=== PATIENT | male | born 1930 ===

== ENCOUNTER 2018-05-15 10:52 | Observation (INO) ==
[2018-05-15] MEDS ORDERED: Sodium Chloride 0.9% 1,000 ML PRIMARY IV ONE (11:18)
[2018-05-15 11:46] LABS: BASOPHILS # (AUTO) 0.06 10*3/UL; BASOPHILS % (AUTO) 0.5 % (0-1); EOSINOPHILS # (AUTO) 0.41 10*3/UL; EOSINOPHILS % (AUTO) 3.6 % (0-8); Hematocrit [HCT] 46.6 % (42.0-52.0); LYMPHOCYTES # (AUTO) 2.07 10*3/uL; MEAN CORPUSCULAR HEMOGLOBIN 28.9 PG (27-31); MEAN CORPUSCULAR HGB CONC 32.2 g/dL (33-37); MEAN CORPUSCULAR VOLUME 89.8 FL (80-90); MEAN PLATELET VOLUME 10.7 FL (7.4-12.2); MONOCYTES # (AUTO) 1.02 10*3/UL (0.3-0.8); MONOCYTES % (AUTO) 9.1 % (5-15); NEUTROPHILS # (AUTO) 7.64 10*3/UL; NEUTROPHILS % (AUTO) 67.8 % (50-80); RED BLOOD COUNT 5.19 10^6/uL (4.70-6.10)
[2018-05-15 11:51] LABS: PLATELET MORPHOLOGY COMMENT NORMAL MORPHOLOGY (NORM); RBC MORPHOLOGY COMMENT NORMAL MORPHOLOGY (NORM); WBC MORPHOLOGY COMMENT NORMAL MORPHOLOGY (NORM)
[2018-05-15 11:57] LABS: BLOOD UREA NITROGEN 30 mg/dL (7-22); BUN/CREATININE RATIO 21.42 (6-20); SERUM ALBUMIN 4.3 g/dL (3.5-4.8)
[2018-05-15] MEDS ORDERED: MORPHINE SULFATE 2 MG/1 ML IVP ONE (12:58)
[2018-05-15] MEDS ORDERED: LIDOCAINE HCL 2 % 10 ML JELLY URO-JECT TOPICAL PRN (13:00)
[2018-05-15] MEDS ORDERED: MORPHINE SULFATE 2 MG/1 ML ONE (13:04)
[2018-05-15] MEDS ORDERED: LORazepam 2 MG/1 ML VIAL IVP ONE (13:41)
[2018-05-15] MEDS ORDERED: LORazepam 2 MG/1 ML VIAL ONE (13:49)
--- NOTE | 2018-05-15 14:01 | DI ---
XR HIP COMPLETE MIN 2VW U/L,05/15/2018 11:19 AM: Clinical History: Left hip pain Previous Exam: None at this facility. Findings: 3 views of the left femur obtained, and demonstrate an intramedullary iraj. There is fragmentation of the greater trochanter. There is also callus formation of the mid left femoral shaft. Visualized portions of the knee are unremarkable. There is no femoral neck fracture identified. Impression: Fragmentation of the greater trochanteric appears to be a chronic finding. Cannot completely rule out the possibility of an acute fracture. If there is concern, consider cross-sectional imaging such as CT.
--- NOTE | 2018-05-15 14:48 | DI ---
CT Lower Extremity WO Contrast,05/15/2018 12:57 PM: Clinical History: Left hip pain Previous Exam: None at this facility. Findings: Multiple helically acquired CT images are obtained through the left hip without contrast, and demonst rate a slightly displaced inferior pubic ramus fracture. There is also a slightly displaced superior pubic ramus fracture which appears acute. There is no associated callus formation. The left hip and left femoral shaft demonstrate an old healed fracture and some fragmentation of the greater trochanter. The surrounding soft tissues are unremarkable. A few peripheral vascular calcifications are seen. Impression: Slightly displaced superior and inferior left pubic rami fractures.
--- NOTE | 2018-05-15 15:03 | PDOC ---
HPI - History of Present Illness History of Present Illness: This very nice 87-year-old gentleman with history of dementia sustained a fall this morning was brought to the ER for further evaluation and treatment on CT scan that was found to have a non-displaced left pubic rami fracture and will be coming in for pain control and physical therapy will continue same medication for his other medical issues Past Medical History Tobacco Use: Never Smoker In the Past 12 Months, Have Used or Abuse Any of the Following Substance: None Medication / Allergies Home Medications: Home Medications 3 Medication Instructions Recorded Confirmed Type aspirin 81 mg tablet,delayed PO 08/20/17 02/07/18 History release docusate sodium 100 mg tablet 100 mg PO QDAY 08/20/17 02/07/18 History atorvastatin 10 mg tablet 10 mg PO QDAY #90 tab 01/16/18 02/07/18 Rx insulin glargine (U-100) 100 60 unit SUBCUT QDAY #3 ml 01/16/18 02/07/18 Rx unit/mL (3 mL) subcutaneous pen metoprolol succinate ER 25 mg 25 mg PO QDAY #90 tab 01/16/18 02/07/18 Rx tablet,extended release 24 hr pioglitazone 15 mg tablet 15 mg PO QDAY #90 tab 01/16/18 02/07/18 Rx sertraline 50 mg tablet 75 mg PO QDAY #135 tab 01/16/18 02/07/18 Rx tamsulosin 0.4 mg capsule 0.4 mg PO QDAY #90 cap 01/16/18 02/07/18 Rx lancets See Dose Instructions .ROUTE 01/29/18 02/07/18 Rx .MEDSUPPLY #100 ea pen needle, diabetic 31 gauge x See Dose Instructions .ROUTE 01/29/18 02/07/18 Rx 11/07" .MEDSUPPLY #90 ea gabapentin 300 mg capsule 300 mg PO QHS #90 cap 03/05/18 03/05/18 Rx donepezil 5 mg tablet 5 mg PO QDAY #90 tab 03/12/18 03/12/18 Rx blood sugar diagnostic strips See Dose Instructions .ROUTE 04/02/18 Rx .MEDSUPPLY #50 ea methylphenidate 10 mg tablet 10 mg PO QDAY #30 tab 04/19/18 Rx Allergies/Adverse Reactions: Allergies 3 Allergy/AdvReac Type Severity Reaction Status Date / Time No Known Allergies Allergy Verified 05/15/18 11:03 Review of Systems - Review of Systems All Systems: Reviewed & No Additional Complaints Except as Stated - Respiratory Respiratory: DENIES: Negative System Review, Cough, Sputum, Dyspnea At Rest, Dyspnea with Exertion, Pleuritic Pain, Hemoptysis, Wheezing, Other, See HPI - Cardiovascular Cardiovascular: DENIES: Negative System Review, Chest Pain, Edema, Syncope, Palpitations, Orthopnea, Paroxysmal Nocturnal Dyspnea, Other, See HPI - Gastrointestinal Gastrointestinal / Abdominal: DENIES: Negative System Review, Nausea, Vomiting, Diarrhea, Constipation, Abdominal Pain, Bloody Stool, Poor Appetite, Heartburn, Regurgitation, Bloating, Lactose Intolerance, Melena, Bright Red Blood per Rectum, Other, See HPI Exam - Vitals Vital Signs: Vital Signs Temperature 96.1 F Temperature Source Temporal Artery Scan Pulse Rate [Telemetry] 67 Respiratory Rate 18 Blood Pressure [Left Arm] 144/130 Pulse Ox 100 Oxygen Flow Rate 2 Oxygen Delivery Method Room Air Height 6 ft Weight 260 lb - General General Appearance: No Acute Distress, Cooperative - Head Head Exam: Normal Inspection, Normocephalic, Atraumatic - Eye Eye Exam: POSITIVE: Normal Appearance, PERRL, EOMI, No Scleral Icterus - Neck Neck Exam: Normal Inspection, Full ROM, No Tenderness, No Lymphadenopathy, No Thyromegaly, JVP is not Raised - Respiratory Respiratory Exam: POSITIVE: Clear to Auscultation - Bilaterally, Breathing Non Labored, Normal To Percussion, Normal to Percussion and Palpation - Cardiovascular Cardiovascular Exam: POSITIVE: RRR, No Murmur, No Clicks, No Gallops, No Rubs, PMI Non-Displaced - GI/Abdominal GI/Abdominal Exam: POSITIVE: Normal Bowel Sounds, Non Tender, Non Distended, Soft, No Masses, No Hepatomegaly, No Splenomegaly, No Organomegaly - Extremities Extremities Exam: POSITIVE: No Clubbing Present, No Edema Present, No Cyanosis Present - Neurological Neurological Exam: POSITIVE: Alert, No Facial Droop, Speech Intact / Clear, Moves All Extremities Equally Results - Labs CBC and BMP: 05/15/18 11:42 05/15/18 11:42 Assessment and Plan - Patient Problems (1) Fracture of left inferior pubic ramus Current Visit: Yes Status: Acute Comment: We'll admit patient for pain control orthopedic consult was initiated PT and OT was consult did Code(s): S32.592A - Other specified fracture of left pubis, initial encounter for closed fracture (2) Dementia Current Visit: No Status: Chronic Comment: Continue same medication Code(s): F03.90 - Unspecified dementia without behavioral disturbance Qualifiers: (3) Depression Current Visit: No Status: Chronic Comment: Continue same medication Code(s): F32.9 - Major depressive disorder, single episode, unspecified Qualifiers: (4) Diabetes 1.5, managed as type 2 Current Visit: No Status: Chronic Comment: Continue same medication Code(s): E10.9 - Type 1 diabetes mellitus without complications (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
[2018-05-15] MEDS ORDERED: DOCUSATE 100 MG CAPSULE PO PRN (15:32)
[2018-05-15] MEDS ORDERED: ONDANSETRON 4 MG/2 ML VIAL IVP PRN (15:32)
[2018-05-15] MEDS ORDERED: HYDROmorphone 2 MG/1 ML IVP PRN (15:32)
[2018-05-15] MEDS ORDERED: CALCIUM CARBONATE 500 MG (TUMS) CHEWABLE TABLET PO PRN (15:32)
[2018-05-15] MEDS ORDERED: LIDOCAINE W/ SODIUM BICARB 0.5 ML SYR SUBD PRN (15:32)
--- NOTE | 2018-05-15 16:35 | CONSULT ---
Consult Note - Consult Consult Date: 05/15/18 Reason for Consult: Orthopedic Consult Requesting Physician: dr Christianson Primary Care Provider: Carmelita Flores MD - History of Present Illness History of Present Illness: Patient is an 87-year-old man who was in someone's bathroom other than his own was sitting on a raised toilet seat and fell off landing on his hip and buttock region with medial pain discomfort was brought to the hospital via ambulance because he could not ambulate and increasing pain and discomfort patient had a complex history in that he has previous femur fracture treated with an IM nail about 15 years ago in [facility]. Patient is with some degree of dementia but usually ambulates with a cane. He is not complaining of any hip pain prior to this fall. His normal toilet seat does not have a raised toilet seat Past Medical History Tobacco Use: Never Smoker In the Past 12 Months, Have Used or Abuse Any of the Following Substance: None Medication / Allergies Home Medications: Home Medications 3 Medication Instructions Recorded Confirmed Type aspirin 81 mg tablet,delayed PO 08/20/17 02/07/18 History release docusate sodium 100 mg tablet 100 mg PO QDAY 08/20/17 02/07/18 History atorvastatin 10 mg tablet 10 mg PO QDAY #90 tab 01/16/18 02/07/18 Rx insulin glargine (U-100) 100 60 unit SUBCUT QDAY #3 ml 01/16/18 02/07/18 Rx unit/mL (3 mL) subcutaneous pen metoprolol succinate ER 25 mg 25 mg PO QDAY #90 tab 01/16/18 02/07/18 Rx tablet,extended release 24 hr pioglitazone 15 mg tablet 15 mg PO QDAY #90 tab 01/16/18 02/07/18 Rx sertraline 50 mg tablet 75 mg PO QDAY #135 tab 01/16/18 02/07/18 Rx tamsulosin 0.4 mg capsule 0.4 mg PO QDAY #90 cap 01/16/18 02/07/18 Rx lancets See Dose Instructions .ROUTE 01/29/18 02/07/18 Rx .MEDSUPPLY #100 ea pen needle, diabetic 31 gauge x See Dose Instructions .ROUTE 01/29/18 02/07/18 Rx 11/07" .MEDSUPPLY #90 ea gabapentin 300 mg capsule 300 mg PO QHS #90 cap 03/05/18 03/05/18 Rx donepezil 5 mg tablet 5 mg PO QDAY #90 tab 03/12/18 03/12/18 Rx blood sugar diagnostic strips See Dose Instructions .ROUTE 04/02/18 Rx .MEDSUPPLY #50 ea methylphenidate 10 mg tablet 10 mg PO QDAY #30 tab 04/19/18 Rx Allergies/Adverse Reactions: Allergies 3 Allergy/AdvReac Type Severity Reaction Status Date / Time No Known Allergies Allergy Verified 05/15/18 11:03 Exam - - Exam: Examination shows that the patient generally is a little sleepy at the current time but moves the upper extremities reasonably well with no pain or discomfort no pain in the neck lower back or mid back region. No pain along the rib cage. Patient with no significant pain with squeezing of the pelvis but does have pain over the anterior symphysis and rami area. No significant pain or ecchymosis over the trochanteric region laterally. Old incisions. No significant edema or swelling in the lower extremities. Good motion of the foot ankle and toes does have pain with movement of the hip or knee on the left. Radiographs of the left hip show that the patient has femoral nail in place with a lag screw that is rather high in the femoral head and neck region but does not appear to have any acute changes. Patient with a distal interlock well -healed femur fracture distally. Patient also with the minimally displaced superior inferior ramus fracture on the left on x-ray CT of the pelvis showed a minimally displaced superior inferior ramus fracture. I don't see any posterior sacral her iliac fractures. - Vitals Vital Signs: Vital Signs Temperature 96.1 F Temperature Source Temporal Artery Scan Pulse Rate [Telemetry] 67 Respiratory Rate 18 Blood Pressure [Left Arm] 144/130 Pulse Ox 97 Oxygen Flow Rate 3 Oxygen Delivery Method Nasal Cannula Height 5 ft 9 in Weight 102.965 kg Results - Labs CBC and BMP: 05/15/18 11:42 05/15/18 11:42 Assessment and Plan - Assessment / Plan Additional Assessment/Plan Details: Impression: Left superior and inferior ramus fractures mildly displaced Plan: Patient can be partial weightbearing on the left with a walker I probably would try to limit the weightbearing based on his discomfort. I certainly think with his dementia this may be difficulty may need to be more ambulatory with a wheelchair no pivoting or twisting on that left leg. Pain control with oral or IV medication as needed and depending on the patient's ability to participate with therapy may dictate placement issues. Patient desire is to get home as well as it is for his and family - Time/Visit Time Spent With Patient: 15-25 Minutes
[2018-05-15] MEDS: Lactated Ringers 1,000 ML PRIMARY IV SCH (16:36)
--- NOTE | 2018-05-15 16:49 | EKG ---
[address] [address] Measurements Intervals [place] Rate: 66 P: 35 UT: 290 QRS: 4 QRSD: 91 T: 13 QT: 412 QTc: 425 Interpretive Statements SINUS RHYTHM WITH FIRST DEGREE AV BLOCK No previous ECG available for comparison Electronically Signed On 05-16-18 13:35:04 MST by Cristhian Rodas [email or web address]
[2018-05-15] MEDS: DONEPEZIL 5 MG TABLET PO SCH (20:42)
[2018-05-15] MEDS: GABAPENTIN 300 MG CAPSULE PO SCH (20:42)
[2018-05-15] MEDS: ATORVASTATIN 10 MG TABLET PO SCH (20:42)
[2018-05-15] MEDS ORDERED: TAMSULOSIN 0.4 MG CAPSULE PO SCH (21:00)
[2018-05-16] MEDS: Lactated Ringers 1,000 ML PRIMARY IV SCH ×2 (03:23→13:32)
--- NOTE | 2018-05-16 04:27 | PDOC ---
Hip Injury/Pain HPI - General Chief Complaint: Lower Extremity Problem/Injury Stated Complaint: hip pain s/p fall Date Seen by Provider: 05/15/18 Time Seen by Provider: 11:05 Source: POSITIVE: Patient, Spouse, EMS, Other (Daughter) Exam Limitations: POSITIVE: No limitations Nurse's Notes Reviewed & Considered: Yes EMS Report Reviewed & Considered: Verbal - History of Present Illness Initial Comments: The patient is an 87-year-old male who lives at an assisted living center. Patient arrives to the emergency room by ambulance. Patient was sitting on the commode and slipped off the commode onto the floor. found the patient on the floor the bathroom and she could not get the patient up, so she your family member called the ambulance. Patient normally uses a walker. Patient has had repair of a femoral fracture on the left with associated left hip arthroplasty in the past. Patient denies any associated head neck back chest abdomen or upper extremity trauma or discomfort. Have you received a tetanus shot in the past 10 years?: Unknown Location: Left Hip Timing: REPORTS: Abrupt Duration: 1 hour Severity: Moderate Location at Time of Onset: REPORTS: Home Context: REPORTS: Fall Concurrent Injuries: DENIES: Neck, Head, Back, Chest, Abdomen, Extremities, Face , Other Quality: REPORTS: "Pain" (Left hip) Modifying Factors: REPORTS: Movement, Other (Patient states he is unable to bear weight on left leg) Symptoms Prior to Fall: DENIES: Fever, Chills, Diaphoresis, Diaphoresis, Chest Pain, Weakness, Rapid Heart Rate, Nausea, Vomiting, Diarrhea, Dizziness, Light- Headedness, Headache, Seizure, Other Subsequent Symptoms: DENIES: Sensory Loss, Motor Loss, Numbness, Weakness, Bowel / Bladder Problems, Other Similar Symptoms Previously: No Recent Care Received: REPORTS: Denies Any Prior Injuries Related to Current Complaint?: No - Patient Home Medications Home Medications: Home Medications aspirin 81 mg tablet,delayed release PO 08/20/17 docusate sodium 100 mg tablet 100 mg PO QDAY 08/20/17 atorvastatin 10 mg tablet 10 mg PO QDAY #90 tab 01/16/18 insulin glargine (U-100) 100 unit/mL (3 mL) subcutaneous pen 60 unit SUBCUT QDAY #3 ml 01/16/18 metoprolol succinate ER 25 mg tablet,extended release 24 hr 25 mg PO QDAY #90 tab 01/16/18 pioglitazone 15 mg tablet 15 mg PO QDAY #90 tab 01/16/18 sertraline 50 mg tablet 75 mg PO QDAY #135 tab 01/16/18 tamsulosin 0.4 mg capsule 0.4 mg PO QDAY #90 cap 01/16/18 lancets See Dose Instructions .ROUTE .MEDSUPPLY #100 ea 01/29/18 pen needle, diabetic 31 gauge x /16" See Dose Instructions .ROUTE .MEDSUPPLY # 90 ea 01/29/18 gabapentin 300 mg capsule 300 mg PO QHS #90 cap 03/05/18 donepezil 5 mg tablet 5 mg PO QDAY #90 tab 03/12/18 blood sugar diagnostic strips See Dose Instructions .ROUTE .MEDSUPPLY #50 ea 03/12 methylphenidate 10 mg tablet 10 mg PO QDAY #30 tab 04/19/18 - Patient Allergies Allergies/Adverse Reactions: Allergies 3 Allergy/AdvReac Type Severity Reaction Status Date / Time No Known Allergies Allergy Verified 05/15/18 11:03 Past Medical History - heen HEENT History: Denies History Cardiovascular History: Hypertension, Hyperlipidemia Respiratory History: Home Oxygen Use Gastrointestinal History: Denies History Genitourinary History: Denies History Endocrine History: Type 2 Diabetes (oral) Musculoskeletal History: Arthritis Neurological History: Denies History Blood Disorders: Denies History Psychiatric History: Denies History History of Sexually Transmitted Diseases: No Male Reproductive History: Denies History Cancer History: Other (please comment) In Past Year Been Physically Harmed or Verbally Threatened: No History of MDRO: No History of Other Communicable Diseases: No Tobacco Use: Never Smoker In the Past 12 Months, Have Used or Abuse Any Substance: None Previous Surgical History: Yes Type / Date of Surgery: patient has noted scar to the left lateral hip, but does not recall if he has had surgery or not, ulcer surgery Anesthesia Reactions: No Malignant Hyperthermia: No Family History of Malignant Hyperthermia: No Significant Family History: Heart disease, Diabetes Past Medical History Reviewed: Reviewed - No Changes ROS - Limitations ROS Limitations: No Limitations Constitution: REPORTS: Denies Symptoms Cardiovascular: REPORTS: Denies Cardiac Symptoms Respiratory: REPORTS: Denies Resp Symptoms Neurological: REPORTS: Denies Neuro Symptoms Gastrointestinal: REPORTS: Denies GI Symptoms Endocrine: REPORTS: Denies Symptoms Musculoskeletal: REPORTS: Joint Pain (Left hip pain) Genitourinary: REPORTS: Denies Symptoms Eyes: REPORTS: Denies Symptoms ENT: REPORTS: Denies Symptoms Skin: REPORTS: Denies Skin Symptoms Lympathic: REPORTS: Denies Lympathic Symptoms Immunologic: POSITIVE: Denies Symptoms Psychiatric: POSITIVE: Denies Psych Symptoms Hip Injury / Pain Exam - General Appearance General Appearance: POSITIVE: Alert, Cooperative, No Evidence of Trauma, Mild Distress. NEGATIVE: No Acute Distress - Lower Extremity Extremities: POSITIVE: No Pedal Edema, No Obvious Injury to Knee, No Deformity to Knee, Normal Tendon Exam, Hip Pain on Leg Movement. NEGATIVE: Normal ROM ( Patient unable to raise left foot off the gurney due to left hip pain), Shortening of Leg, External Rotation of Leg, Hip/Knee Tenderness, Pedal Edema, Ecchymosis, Erythema, Soft Tissue Injury, Positive Florecita's Sign - HEENT HEENT: POSITIVE: Head Inspection Nml, Eyes Inspection Nml, Ears Inspection Nml, Nose Inspection Nml, Oral/Dental Inspect. Nml, Pharynx Inspect. Nml, PERRL, EOMI - Pupil Size Pupil Size: 4 mm: Bilateral (PERRLA) - Neck/Back Neck: POSITIVE: Normal Inspection, Non-Tender Back: POSITIVE: Normal Inspection, No CVA Tenderness, Non Tender, Painless ROM, No Vertebral Tenderness - Respiratory / CVS Cardiovascular: POSITIVE: Regular Rate and Rhythm, Heart Sounds Normal, Equal Pulses, Strong Pulses, No Murmur, No Gallop, No JVD, No Pulse Deficit Respiratory: POSITIVE: Chest Non Tender, No Ecchymosis, Breath Sounds Normal, No Respiratory Distress Peripheral Pulses: Radial (R): 2+, Radial (L): 2+, Dorsalis-pedis (R): 2+, Dorsalis-pedis (L): 2+ - Abdomen Abdomen: Soft: (All Quadrants), Normal Bowel Sounds: (All Quadrants), Denies Tenderness: (All Quadrants), No Splenomegaly: (All Quadrants), No Hepatomegaly: (All Quadrants), No Guarding: (All Quadrants), No Rebound: (All Quadrants), No Palpable Pulse: (All Quadrants), No Palpabale Mass: (All Quadrants), No Distention: (All Quadrants), No Rigidity: (All Quadrants) - Skin Skin: POSITIVE: Color Normal, No Rash, Warm, Dry, Normal Palpation - Neuro/Psych Neuro / Psych: POSITIVE: Oriented x 3, Neuro Grossly Intact, Mood Appropriate, Affect Appropriate Images - Complete Complete: 1 - Area described pain 2 - Area of described pain Hip Injury / Pain Progress - Results Reviewed by me Xrays/CTs/US Reviewed by me: Yes Discussed with Radiologist: Yes Radiology Findings: Plain film left hip and CT left hip shows patient to have a femoral iraj and a left hip arthrodesis. There is a fracture to the left superior and inferior pubic rami. CBC and BMP: 05/15/18 11:42 05/15/18 11:42 Lab Results:: Laboratory Results 3 05/15/18 05/15/18 05/15/18 11:42 11:42 11:42 WBC 11.27 H RBC 5.19 Hgb 15.0 Hct 46.6 MCV 89.8 MCH 28.9 MCHC 32.2 L RDW Std Deviation 46.9 RDW Coeff of Mary Carmen 14.5 Plt Count 292 MPV 10.7 Immature Gran % (Auto) 0.6 Neut % (Auto) 67.8 Lymph % (Auto) 18.4 [place] % (Auto) 9.1 Eos % (Auto) 3.6 Baso % (Auto) 0.5 Immature Gran # (Auto) 0.07 Neut # (Auto) 7.64 Lymph # (Auto) 2.07 [place] # (Auto) 1.02 H Eos # (Auto) 0.41 Baso # (Auto) 0.06 WBC Morphology Comment Normal morphology Plt Morphology Comment Normal morphology RBC Morph Comment Normal morphology PT 11.3 INR 1.10 Sodium 139 Potassium 5.3 H Chloride 105 Carbon Dioxide 25 Anion Gap 9 BUN 30 H Creatinine 1.4 BUN/Creatinine Ratio 21.42 H Glucose 125 H Calculated Osmolality 294.0 H Calcium 9.9 Total Bilirubin 0.5 AST 33 ALT 27 Alkaline Phosphatase 95 Total Protein 8.1 H Albumin 4.3 Globulin 3.8 Albumin/Globulin Ratio 1.10 L EKG Interpreted/Reviewed By Me:: Yes (normal) EKG Interpretation:: POSITIVE: Normal Sinus Rhythm, Normal Rate, Normal Intervals, Normal [place], Normal QRS, Normal ST/T - Patient's Progress Pain Medication Addressed: POSITIVE: Yes (Patient given morphine sulfate 2 mg IV ) School/Work Release Addressed: POSITIVE: Not Applicable Re-Examine Time: 14:30 Re-Examine Comment: Diagnosis of pubic rami fracture, left, discussed with patient and family members. Patient is unable to bear weight and lives with his frail life. Unable care for himself at home. Case discussed with hospitalist, Dr. Christianson and orthopedist, Dr. Drake. Patient admitted by Dr. Rodríguez with consultation to Dr. Drake for further evaluation and treatment. Status: POSITIVE: Unchanged, Re-Examined - Consult Counseled: POSITIVE: Patient, Family, RE: Lab Results, RE: Radiology Results, RE : DX, RE: Need for F/U Patient Care Time - Estimated PCT Patient Care Time (In Minutes): 45 Vital Signs - VS Reviewed Vital Signs Reviewed: Yes Discharge Clinical Impression: Pubic bone fracture Discharge Disposition: Admit to Inpatient Condition: Stable Date Decision to Admit to Inpatient: 05/15/18 Time Decision to Admit to Inpatient: 14:30
[2018-05-16 04:39] LABS: BLOOD UREA NITROGEN 31 mg/dL (7-22); BUN/CREATININE RATIO 23.84 (6-20); SERUM ALBUMIN 3.8 g/dL (3.5-4.8)
[2018-05-16] MEDS: ACETAMINOPHEN 325 MG TABLET PO PRN ×2 (09:05→21:26)
[2018-05-16] MEDS: Sertraline Tab 50 MG TAB PO SCH (09:05)
[2018-05-16] MEDS: METOPROLOL SUCCINATE 25 MG SR 24H TABLET PO SCH (09:05)
[2018-05-16] MEDS: DOCUSATE 100 MG CAPSULE PO SCH (09:06)
[2018-05-16] MEDS: TAMSULOSIN 0.4 MG CAPSULE PO SCH (09:06)
[2018-05-16] MEDS: ASPIRIN EC 81 MG TABLET PO SCH (09:06)
[2018-05-16] MEDS: PIOGLITAZONE HCL 15 MG PO SCH (09:06)
[2018-05-16] MEDS: Insulin Glargine SoloStar Inj 100 UNIT/ML INSULN.PEN SUBCUT SCH (09:07)
[2018-05-16] MEDS: METHYLPHENIDATE HCL 10 MG PO SCH (10:31)
--- NOTE | 2018-05-16 11:27 | PDOC(PROG) ---
Date of Service: 05/16/18 Time of Service: 11:30 Interval History: Subjective Patient was laying in bed doesn't appear in distress. He is denying complaint. There is no pain, no nausea no diarrhea. After a few questions he did Remember that he is in the hospital after he fell. He said he had pain when he moved his leg but not while lying still. Objective : Data - Labs CBC and BMP: 05/15/18 11:42 05/16/18 04:02 Objective : Exam - General General Appearance: No Acute Distress, Cooperative, Obese - Head Head Exam: Normal Inspection - Eye Eye Exam: Normal Appearance - ENT ENT Exam: Normal Exam - Neck Neck Exam: Normal Inspection - Respiratory Respiratory Exam: Clear to Auscultation - Bilaterally - Cardiovascular Cardiovascular Exam: RRR - GI/Abdominal GI/Abdominal Exam: Normal Bowel Sounds, Non Tender, Non Distended, Soft, No Organomegaly - Rectal Rectal Exam: Deferred - External Exam: Deferred - Extremities Extremities Exam: Normal Inspection - Back Back Exam: Normal Inspection - Neurological Neurological Exam: Alert, CN II-XII Intact Additional Neurological Exam Details: There is limited movement on flexion of his hip because of pain. The same also for flexion of the left knee. Otherwise he is able to move his right hip and knee. He was close to the day he is a month and theyear. He knew it is Thanksgiving - Integumentary Integumentary Exam: Normal Color Assessment and Plan - Patient Problems (1) Diabetes 1.5, managed as type 2 Current Visit: No Status: Chronic Comment: Continue same dosage of insulin. We'll DC the fluid. Continue monitoring his blood sugar. 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 Code(s): E11.22 - Type 2 diabetes mellitus with diabetic chronic kidney disease ; N18.3 - Chronic kidney disease, stage 3 (moderate) (3) Dementia Current Visit: No Status: Chronic Comment: Continue same med Code(s): F03.90 - Unspecified dementia without behavioral disturbance Qualifiers: (4) Peripheral neuropathic pain Current Visit: No Status: Chronic Comment: Continue gabapentin Code(s): M79.2 - Neuralgia and neuritis, unspecified (5) Depression Current Visit: No Status: Chronic Comment: Continue Zoloft Code(s): F32.9 - Major depressive disorder, single episode, unspecified Qualifiers: (6) Fracture of left inferior pubic ramus Current Visit: Yes Status: Acute Comment: Continue mobilizing with partial weightbearing with PT and OT. Will see their assessment tomorrow I think we'll keep him another night. Code(s): S32.592A - Other specified fracture of left pubis, initial encounter for closed fracture
--- NOTE | 2018-05-16 14:21 | ORTHO.PROG ---
Last Taken Vital Signs: Vital Signs - Last Taken Temperature 97.9 F 05/16/18 13:00 Pulse Rate 85 05/16/18 13:00 Respiratory Rate 20 05/16/18 13:00 Blood Pressure 136/53 05/16/18 13:00 Pulse Ox 95 05/16/18 13:00 Subjective: Patient denies any pain in bed. Notes attempts at moving produce pain in the left hip Objective: Patient with pain with movement rolling of the left hip up in the rami area. Motor and sensory exam seems to be intact. Patient seems appropriate with questioning. No pain with palpation of the lower back in the SI joint regions. Laboratory Results 05/15/18 05/15/18 05/16/18 Range/Units 15:42 21:23 04:02 Sodium 135 (135-145) meq/L Potassium 5.0 (3.8-5.2) meq/L Chloride 104 (98-112) meq/L Carbon Dioxide 23 (23-33) meq/L Anion Gap 8 (5-20) BUN 31 H (7-22) mg/dL Creatinine 1.3 (0.70-1.50) mg/dL BUN/Creatinine Ratio 23.84 H (6-20) Glucose 203 H (78-110) mg/dL Calculated Osmolality 292.0 (267-292) mOsm/kg Calcium 9.0 (8.7-10.7) mg/dL Total Bilirubin 0.5 (0.3-1.2) mg/dL AST 99 H (21-57) IU/L ALT 20 L (21-72) IU/L Alkaline Phosphatase 75 (38-126) IU/L Troponin I < 0.012 < 0.012 (< 0.040) ng/mL Total Protein 7.1 (6.1-8.0) g/dL Albumin 3.8 (3.5-4.8) g/dL Globulin 3.3 (2.50-4.10) g/dL Albumin/Globulin Ratio 1.10 L (1.3-2.0) mg/g Vital Signs (24 hrs) Temp Pulse Pulse Resp BP BP Pulse Ox 05/16/18 13:00 97.9 F 85 20 136/53 95 05/16/18 09:00 98.1 F 75 20 138/64 94 05/16/18 08:00 72 20 05/16/18 05:16 95 05/16/18 04:10 97.5 F 71 20 151/59 94 05/15/18 23:39 97.5 F 80 20 138/67 95 05/15/18 20:00 97.4 F 81 24 133/64 93 05/15/18 19:25 80 20 05/15/18 17:00 97.2 F 75 24 152/74 97 05/15/18 15:57 97 05/15/18 15:23 98.8 F 64 18 123/69 100 Assessment: Left superior and inferior rami fracture minimally displaced stable Plan: Continue with physical therapy and occupational therapy. Partial Weightbearing as tolerated patient should have her re-x-ray and probably a week or so to make sure there is no further displacement or collapse or evidence of posterior ring injury.
[2018-05-16] MEDS: ATORVASTATIN 10 MG TABLET PO SCH (21:26)
[2018-05-16] MEDS: GABAPENTIN 300 MG CAPSULE PO SCH (21:26)
[2018-05-16] MEDS: DONEPEZIL 5 MG TABLET PO SCH (21:27)
[2018-05-17] MEDS: HYDROcodone-APAP 5 MG -325 MG TABLET PO PRN ×3 (00:13→20:21)
[2018-05-17] MEDS: Insulin Glargine SoloStar Inj 100 UNIT/ML INSULN.PEN SUBCUT SCH (08:14)
[2018-05-17] MEDS: PIOGLITAZONE HCL 15 MG PO SCH (08:14)
[2018-05-17] MEDS: METHYLPHENIDATE HCL 10 MG PO SCH (08:14)
[2018-05-17] MEDS: Sertraline Tab 50 MG TAB PO SCH (08:15)
[2018-05-17] MEDS: METOPROLOL SUCCINATE 25 MG SR 24H TABLET PO SCH (08:17)
[2018-05-17] MEDS: DOCUSATE 100 MG CAPSULE PO SCH (08:17)
[2018-05-17] MEDS: TAMSULOSIN 0.4 MG CAPSULE PO SCH (08:17)
[2018-05-17] MEDS: ASPIRIN EC 81 MG TABLET PO SCH (08:18)
--- NOTE | 2018-05-17 08:40 | PT.PROG ---
Progress Note Progress Note: Inpatient Initial Evaluation Name: Isac Jacobs Date: 05/17/18 Referring Physician: Ryder Christianson Date of Surgery: 05/15/18 Diagnosis: L pubic ramus fx Thank you for the referral of PT. He was seen on 05/17/18 for the above diagnosis. Subjective: The patient is an 87 year-old male s/p L pubic ramus fx. He lives at the assisted living and fractured his pubic ramus when he fell in the shower. Patient verbalized that his L leg was in a lot of pain during transfers from supine to sitting, sitting to standing, and standing to sitting. Objective: The patient was able to stand from his bed with MAAx2. He could not ambulate to his chair which had to be moved behind him so he only needed to pivot transfer to the chair from his bed. Patient had not had his morning pain medication yet, and was in too much pain to complete other exercises at this time. Assessment: Patient List: 1. Pain 2. Difficulty walking 3. Difficulty transferring Short-Term Goals: Patient will have reduced pain in order to transfer safely and independently prior to discharge from inpatient care. Patient will be able to ambulate 150 ft with MIAx1 in order to walk safely at home prior to discharge from inpatient care. Long -Term Goals: Patient will be seen by outpatient physical therapy following discharge from inpatient care. Treatment Plan: Patient will be seen twice a day during the week and once over the weekend as an inpatient until discharge. Initial Treatment: See objective. Respectfully submitted: Jina Quach, [facility]
--- NOTE | 2018-05-17 10:30 | OTI REPORT ---
Thank you for the referral of Isac Jacobs. He was seen on 05/16/18 for an occupational therapy inpatient evaluation secondary to falling and suffering a left pubic rami fracture. SUBJECTIVE: The patient is an 87-year-old male who was seen today secondary to falling at the assisted living facility in his bathroom. He suffered a left pubic rami fracture. The patient states he does not have pain; however, after moving, he did complain of a lot of pain and difficulties. The patient demonstrated some confusion; he didn't necessarily know where he was in the town, but he did know he was in a hospital. He did ask where his was. He did not necessarily know where his was living. The patient demonstrated a little bit if difficulty hearing. He reports he was able to dress himself prior to admission and he used a four wheeled walker. The patient was on oxygen before admission. PAST MEDICAL HISTORY: Past medical history can be found in the patient's medical record. OBJECTIVE FINDINGS: General observations: The patient was supine in bed upon the therapist's arrival. Bed mobility: The patient required max assist x2 to transfer from supine to sit. While sitting edge of bed the patient was able to keep his balance. Activities of daily living: The patient requires max assist for dressing upper and lower extremities. He has difficulty keeping his balance while sitting edge of bed when attempting to take both hands off of the bed at once. Transfers: The patient required max assist x2 to transfer from sit to stand. Ambulation: The patient ambulated to the chair with max assist x2. Pain: The patient stated his left leg was painful; however, he was not able to rate his pain on the verbal analog scale (0=no pain, 10=worst pain). Range of motion: Upper extremity range of motion is within normal limits. Strength: Upper extremity strength is 3+/5 throughout. ASSESSMENT: The patient does have a pubic rami fracture which will more than likely take quite a few weeks to recover from. The patient may or may not benefit from adaptive equipment based on his cognitive state. He is demonstrating some memory issues. Problem List: Decreased functional mobility Decreased upper extremity strength Decreased activity tolerance Decreased ability to complete ADLs Short-Term Goals: To be met by discharge from inpatient: Patient will be able to dress self with stand by assistance. Patient will be able to stand at sink x5 minutes to complete hygiene activities without balance difficulties. Patient will be able to complete toileting and toilet hygiene independently. Patient will be able to complete bed transfers independently. Patient will increase upper extremity strength to 4+/5 throughout to improve strength for overall functional activities and ADLs. Long-Term Goals: To be met following discharge from inpatient: Patient will more than likely need 24-hour care for the next 6-8 weeks. He may need to be on swingbed or go to [facility] during that time and then possibly move back to assisted living if he makes a full recovery. TREATMENT PLAN: Patient will be seen B.I.D during the week and one time per day over the weekend as an inpatient to address the above goals and objectives. INITIAL TREATMENT: Treatment today consisted of the initial evaluation. We left the patient in his chair for an hour and the therapist went back to put him back into bed. The patient was able to transfer from sit to stand with max assist x2. He ambulated to the bed with increased time; it took approximately 10 minutes in order for the patient to walk from the chair to the bed which was just a few feet away. He had difficulty moving his left lower extremity and he stated that the pain was excruciating. The patient then transferred into bed with max assist x2. He transferred from sit to supine and completed bed mobility with max assist x2. He was able to help slightly, but has a lot of difficulty moving his left lower extremity. [facility]
--- NOTE | 2018-05-17 10:44 | PDOC(PROG) ---
Date of Service: 05/17/18 Time of Service: 10:45 Interval History: Subjective Patient was sitting in the chair does not appear in distress. He does not remember seeing me yesterday. He is denying pain while sitting in the chair he has pain when he's up. He is denying other symptoms. He is very hard of hearing. Objective : Data - Labs CBC and BMP: 05/15/18 11:42 05/16/18 04:02 Objective : Exam - General General Appearance: No Acute Distress, Cooperative - Head Head Exam: Normal Inspection - Eye Eye Exam: Normal Appearance - ENT ENT Exam: Normal Exam - Neck Neck Exam: Normal Inspection - Respiratory Respiratory Exam: Clear to Auscultation - Bilaterally - Cardiovascular Cardiovascular Exam: RRR - GI/Abdominal GI/Abdominal Exam: Normal Bowel Sounds, Non Tender, Non Distended, Soft, No Organomegaly - Rectal Rectal Exam: Deferred - External Exam: Deferred Exam: Deferred - Extremities Extremities Exam: Normal Inspection - Back Back Exam: Normal Inspection - Neurological Additional Neurological Exam Details: No focal finding except that he has limited ability to raise his left leg up because of pain. That also include flexing his left knee also because of pain. 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 Continue PT. He still requiring 2 people assist. Code(s): S32.592A - Other specified fracture of left pubis, initial encounter for closed fracture (5) Depression Current Visit: No Status: Chronic Comment: Continue Zoloft Code(s): F32.9 - Major depressive disorder, single episode, unspecified Qualifiers:
--- NOTE | 2018-05-17 11:40 | ORTHO.PROG ---
Last Taken Vital Signs: Vital Signs - Last Taken Temperature 97.3 F 05/17/18 11:12 Pulse Rate 76 05/17/18 11:12 Respiratory Rate 16 05/17/18 11:12 Blood Pressure 117/55 05/17/18 11:12 Pulse Ox 90 05/17/18 11:12 Subjective: Patient denies any pain but when he moves his left hip he notes that he has discomfort Objective: Patient is sitting in a chair comfortable motion to his foot and ankle is normal with no limitations or when he moves his knee and hip he complains of discomfort in the left hip. Motor and sensory exam generally appears to be intact Vital Signs (24 hrs) Temp Pulse Pulse Resp BP BP Pulse Ox 05/17/18 11:12 97.3 F 90 76 16 117/55 90 05/17/18 07:01 97.5 F 71 16 122/46 93 05/17/18 04:43 97.6 F 76 20 123/47 93 05/17/18 04:30 95 05/17/18 00:03 97.9 F 89 24 172/78 93 05/16/18 20:01 97.7 F 85 20 151/56 92 05/16/18 19:30 80 05/16/18 16:04 97.2 F 84 18 142/58 91 05/16/18 13:00 97.9 F 85 20 136/53 95 Assessment: Left superior and inferior rami fractures Plan: Protected weightbearing on left with a walker can mobilize with wheelchair as needed for significant distances. Pain control.
--- NOTE | 2018-05-17 12:11 | OT.PROG ---
Progress Note Progress Note: S: pt stated that he was feeling fine and agreed to therapy. O: tx consisted of AROM exercises in all planes of motion x 5 each, RTB exercises in all planes of motion x10 each, 1# BUE exercises in all planes of motion x10 each. A: pt tolerated session well and reported no pain. P: continue POC
--- NOTE | 2018-05-17 13:29 | PT.PROG ---
Progress Note Progress Note: Subjective: Patient states he wants to get out of his chair and lie down. He reports he is having more pain on his L side from his hip to his ankle. Objective: Patient was unable to ambulate from his chair to his bed. After standing from his chair, he immediately shifted his trunk to the L, and was unable to move his R foot. Patient sat down again, and he was moved in his chair closer to the bed. Patient was short of breath the entire time. He was able to pivot transfer with MAAx2 to his bed, and was left on his L side per his request with his call light. Assessment: Problems List: 1. Weakness 2. Pain 3. Difficulty transferring Short term goals: Patient will be able to ambulate 10 ft from his bed to his chair by tomorrow. Patient will have reduced pain in order to transfer safely. ad terminal makeup operator goals: Patient will be seen by outpatient physical therapy following discharge from inpatient care. Treatment Plan: Patient will be seen twice during the week and once over the weekend until discharge. Initial Treatment: See objective Respectfully submitted, Jina Quach, SPT [facility], [facility]
[2018-05-17] MEDS: GABAPENTIN 300 MG CAPSULE PO SCH (20:22)
[2018-05-17] MEDS: ATORVASTATIN 10 MG TABLET PO SCH (20:22)
[2018-05-17] MEDS: DONEPEZIL 5 MG TABLET PO SCH (20:22)
[2018-05-18 04:39] LABS: BASOPHILS # (AUTO) 0.05 10*3/UL; BASOPHILS % (AUTO) 0.5 % (0-1); EOSINOPHILS # (AUTO) 0.49 10*3/UL; Hemoglobin [HGB] 12.4 g/dL (14.0-18.0); LYMPHOCYTES # (AUTO) 2.13 10*3/uL; MEAN CORPUSCULAR HEMOGLOBIN 28.4 PG (27-31); MEAN CORPUSCULAR VOLUME 91.7 FL (80-90); MEAN PLATELET VOLUME 10.5 FL (7.4-12.2); MONOCYTES # (AUTO) 1.18 10*3/UL (0.3-0.8); MONOCYTES % (AUTO) 12.1 % (5-15); NEUTROPHILS # (AUTO) 5.87 10*3/UL; NEUTROPHILS % (AUTO) 60.2 % (50-80); RED BLOOD COUNT 4.36 10^6/uL (4.70-6.10)
[2018-05-18 05:35] LABS: BLOOD UREA NITROGEN 36 mg/dL (7-22); BUN/CREATININE RATIO 27.69 (6-20); SERUM ALBUMIN 3.2 g/dL (3.5-4.8)
[2018-05-18 05:37] LABS: PLATELET MORPHOLOGY COMMENT NORMAL MORPHOLOGY (NORM); RBC MORPHOLOGY COMMENT NORMAL MORPHOLOGY (NORM); WBC MORPHOLOGY COMMENT NORMAL MORPHOLOGY (NORM)
[2018-05-18] MEDS: HYDROcodone-APAP 5 MG -325 MG TABLET PO PRN ×4 (07:11→20:10)
--- NOTE | 2018-05-18 08:12 | PDOC(PROG) ---
Date of Service: 05/18/18 Time of Service: 08:15 Interval History: Subjective Patient was laying in bed does not appear in distress. He did remember seeing me yesterday. He complained from pain in the left hip area when he stands. He said he doesn't have pain while laying in bed. Objective : Data - Labs CBC and BMP: 05/18/18 04:26 05/18/18 04:26 Objective : Exam - General General Appearance: No Acute Distress, Cooperative - Head Head Exam: Normal Inspection - Eye Eye Exam: Normal Appearance - ENT ENT Exam: Normal Exam - Neck Neck Exam: Normal Inspection - Respiratory Respiratory Exam: Clear to Auscultation - Bilaterally - Cardiovascular Cardiovascular Exam: RRR - GI/Abdominal GI/Abdominal Exam: Normal Bowel Sounds, Non Tender, Non Distended, Soft, No Organomegaly - Rectal Rectal Exam: Deferred - External Exam: Deferred Exam: Deferred - Extremities Extremities Exam: Normal Inspection - Neurological Neurological Exam: Alert, CN II-XII Intact, No Facial Droop, Speech Intact / Clear Additional Neurological Exam Details: Still restricted movement on the left the lower extremity because of pain. 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 Comment: Continue same medications including the Lantus. Code(s): E10.9 - Type 1 diabetes mellitus without complications (2) Dementia Current Visit: No Status: Chronic Comment: Continue Aricept Code(s): F03.90 - Unspecified dementia without behavioral disturbance Qualifiers: (3) Peripheral neuropathic pain Current Visit: No Status: Chronic Comment: Continue gabapentin Code(s): M79.2 - Neuralgia and neuritis, unspecified (4) Fracture of left inferior pubic ramus Current Visit: Yes Status: Acute Comment: Same pain medication continue PT and OT. Per my discussion with the therapist is too weak to go home yesterday. Code(s): S32.592A - Other specified fracture of left pubis, initial encounter for closed fracture (5) Depression Current Visit: No Status: Chronic Comment: Same med Code(s): F32.9 - Major depressive disorder, single episode, unspecified Qualifiers: (6) DVT prophylaxis Current Visit: Yes Status: Acute Comment: We'll start him on Lovenox because of his limited mobility.
[2018-05-18] MEDS: Insulin Glargine SoloStar Inj 100 UNIT/ML INSULN.PEN SUBCUT SCH (09:01)
[2018-05-18] MEDS: ENOXAPARIN SODIUM 40 MG/0.4 ML SYRINGE SUBCUT SCH (09:01)
[2018-05-18] MEDS: Sertraline Tab 50 MG TAB PO SCH (09:02)
[2018-05-18] MEDS: METOPROLOL SUCCINATE 25 MG SR 24H TABLET PO SCH (09:03)
[2018-05-18] MEDS: DOCUSATE 100 MG CAPSULE PO SCH (09:03)
[2018-05-18] MEDS: PIOGLITAZONE HCL 15 MG PO SCH (09:03)
[2018-05-18] MEDS: ASPIRIN EC 81 MG TABLET PO SCH (09:03)
[2018-05-18] MEDS: TAMSULOSIN 0.4 MG CAPSULE PO SCH (09:03)
[2018-05-18] MEDS: METHYLPHENIDATE HCL 10 MG PO SCH (09:04)
--- NOTE | 2018-05-18 09:42 | OT.PROG ---
Progress Note Progress Note: S: pt stated he was feeling fne today adn was in a happy mood. O: tx consisted of seat RTB UE exercises in all planes of motion x 25 each, 2# BUE exercises in all planes of motion x 15 each. A: pt tolerated session well. pt needed MOD VCs to remain on tasks and for correct positioning and form during weighted exercises. P: continue POC
[2018-05-18] MEDS: GABAPENTIN 300 MG CAPSULE PO SCH (20:11)
[2018-05-18] MEDS: ATORVASTATIN 10 MG TABLET PO SCH (20:11)
[2018-05-18] MEDS: DONEPEZIL 5 MG TABLET PO SCH (20:11)
[2018-05-19] MEDS: HYDROcodone-APAP 5 MG -325 MG TABLET PO PRN ×3 (06:56→20:45)
--- NOTE | 2018-05-19 08:16 | PDOC(PROG) ---
Date of Service: 05/19/18 Time of Service: 20:00 Interval History: Subjective Patient was laying in bed does not appear in distress. He did say that he was having some pain in the left hip area. He did receive area some pain medication. He is still two people assist. Objective : Data - Labs CBC and BMP: 05/18/18 04:26 05/18/18 04:26 Objective : Exam - General General Appearance: No Acute Distress, Cooperative - Head Head Exam: Normal Inspection - Eye Eye Exam: Normal Appearance - ENT ENT Exam: Normal Exam - Neck Neck Exam: Normal Inspection - Respiratory Respiratory Exam: Clear to Auscultation - Bilaterally - Cardiovascular Cardiovascular Exam: RRR - GI/Abdominal GI/Abdominal Exam: Normal Bowel Sounds, Non Tender, Non Distended, Soft, No Organomegaly - Rectal Rectal Exam: Deferred - External Exam: Deferred Exam: Deferred - Extremities Additional Extremities Exam Details: No edema noted. Still very limited movement of the right hip because of pain. 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 Will speak with the planner intern about the plan for him as to where to go from here. Code(s): S32.592A - Other specified fracture of left pubis, initial encounter for closed fracture (5) Depression Current Visit: No Status: Chronic Comment: Continue Zoloft Code(s): F32.9 - Major depressive disorder, single episode, unspecified Qualifiers: (6) DVT prophylaxis Current Visit: Yes Status: Acute Comment: Continue Lovenox
[2018-05-19] MEDS: PIOGLITAZONE HCL 15 MG PO SCH (08:25)
[2018-05-19] MEDS: ASPIRIN EC 81 MG TABLET PO SCH (08:26)
[2018-05-19] MEDS: DOCUSATE 100 MG CAPSULE PO SCH ×2 (08:26→20:45)
[2018-05-19] MEDS: TAMSULOSIN 0.4 MG CAPSULE PO SCH (08:26)
[2018-05-19] MEDS: Sertraline Tab 50 MG TAB PO SCH (08:26)
[2018-05-19] MEDS: METOPROLOL SUCCINATE 25 MG SR 24H TABLET PO SCH (08:26)
[2018-05-19] MEDS: ENOXAPARIN SODIUM 40 MG/0.4 ML SYRINGE SUBCUT SCH (08:27)
[2018-05-19] MEDS: Insulin Glargine SoloStar Inj 100 UNIT/ML INSULN.PEN SUBCUT SCH (08:27)
[2018-05-19] MEDS: METHYLPHENIDATE HCL 10 MG PO SCH (08:50)
--- NOTE | 2018-05-19 10:18 | OT.PROG ---
Progress Note Progress Note: S: pt stated he was doing good today and had no pain. O: tx consisted of BUE 2# exercises in all planes of motion x15 each, RTB exercises in all planes of motion x 15 each, AROM exercises of abduction, flexion x15 each, ankle pump exercises x20, LAQ on R LE x10. A: pt tolerated session well. pt was given a standard walker for assistance with ambulation per doctors orders. P: continue POC
[2018-05-19] MEDS ORDERED: BISACODYL 10 MG SUPPOSITORY RECTAL PRN (18:22)
[2018-05-19] MEDS: ATORVASTATIN 10 MG TABLET PO SCH (20:45)
[2018-05-19] MEDS: GABAPENTIN 300 MG CAPSULE PO SCH (20:45)
[2018-05-19] MEDS: DONEPEZIL 5 MG TABLET PO SCH (20:45)
[2018-05-20] MEDS: Insulin Lispro Flexpen 300 UNIT/3 ML INSULN.PEN SUBCUT SCH ×3 (07:25→16:24)
--- NOTE | 2018-05-20 08:10 | PDOC(PROG) ---
Date of Service: 05/20/18 Time of Service: 08:30 Interval History: Subjective Still complaining from pain his left hip. No other symptoms. He had a small bowel movement according to the nurses yesterday. Objective : Data - Labs CBC and BMP: 05/18/18 04:26 05/18/18 04:26 Objective : Exam - General General Appearance: No Acute Distress, Cooperative, Obese - Head Head Exam: Normal Inspection - Eye Eye Exam: Normal Appearance - ENT ENT Exam: Normal Exam - Neck Neck Exam: Normal Inspection - Respiratory Respiratory Exam: Clear to Auscultation - Bilaterally - Cardiovascular Cardiovascular Exam: RRR - GI/Abdominal GI/Abdominal Exam: Normal Bowel Sounds, Non Tender, Non Distended, Soft, No Organomegaly - Rectal Rectal Exam: Deferred - External Exam: Deferred - Extremities Additional Extremities Exam Details: No edema his left leg is externally rotated. - Back Back Exam: Normal Inspection - Neurological Neurological Exam: Alert, CN II-XII Intact, No Facial Droop, Speech Intact / Clear Additional Neurological Exam Details: Still reluctant to move his left hip or knee because of pain according to him. 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 Since I'm seeing more externally rotated left leg I think will repeat x-ray of the hip. I did discuss it with Dr. Drake he is okay with that. Code(s): S32.592A - Other specified fracture of left pubis, initial encounter for closed fracture (5) Depression Current Visit: No Status: Chronic Comment: Same med Code(s): F32.9 - Major depressive disorder, single episode, unspecified Qualifiers: (6) DVT prophylaxis Current Visit: Yes Status: Acute Comment: He is on Lovenox (7) Vitamin D deficiency Current Visit: Yes Status: Acute Comment: Will put him on vitamin D replacement Code(s): E55.9 - Vitamin D deficiency, unspecified
[2018-05-20] MEDS: METOPROLOL SUCCINATE 25 MG SR 24H TABLET PO SCH (08:42)
[2018-05-20] MEDS: Sertraline Tab 50 MG TAB PO SCH (08:42)
[2018-05-20] MEDS: POLYETHYLENE GLYCOL 3350 17 GM POWDER PO SCH (08:43)
[2018-05-20] MEDS: TAMSULOSIN 0.4 MG CAPSULE PO SCH (08:43)
[2018-05-20] MEDS: CHOLECALCIFEROL 1000 IU TABLET PO SCH (08:43)
[2018-05-20] MEDS: PIOGLITAZONE HCL 15 MG PO SCH (08:43)
[2018-05-20] MEDS: DOCUSATE 100 MG CAPSULE PO SCH ×2 (08:43→20:36)
[2018-05-20] MEDS: ASPIRIN EC 81 MG TABLET PO SCH (08:43)
[2018-05-20] MEDS: ENOXAPARIN SODIUM 40 MG/0.4 ML SYRINGE SUBCUT SCH (08:43)
[2018-05-20] MEDS: METHYLPHENIDATE HCL 10 MG PO SCH ×2 (09:14→11:52)
--- NOTE | 2018-05-20 09:40 | DI ---
XR HIP COMPLETE MIN 2VW U/L 05/20/2018 8:14 AM History: [facility] ^left hip pain Comparison: Left hip x-ray 05/15/2018. Left hip CT 05/15/2018. 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 The distal portion of the iraj is not captured on this exam. Diffuse demineralizatio n of the osseous structures limits evaluation of fine anatomic detail. Vertical lucency and cortical irregularity of the superior and inferior pubic rami are consistent with the known fractures demonstr ated on CT. These have not significantly changed in alignment compared to the prior imaging. No other acute osseous abnormality is detected. The remainder of the exam is unchanged.
--- NOTE | 2018-05-20 11:27 | OT.PROG ---
Progress Note Progress Note: S: pt stated that he was feeling okay and needed to use the bathroom. O: tx consisted of ADL tasks of toileting where pt was independent in toileting tasks but dependent in toilet hygiene. pt then completed ADl task of showing where pt needed MOD VCs to completed body washing. pt was MAX A for washing of posterior body and head. pt was independent in anterior body washing with x2 VCs. pt was able to dry self when given a towel. A: pt had difficulties during tx session with controlling his bowels. pt does well with simple 1 to 2 set commands. P: continue POC
--- NOTE | 2018-05-20 12:08 | PT.PROG ---
Progress Note Progress Note: S. Patient stated that he would like a shower this morning and doesn't feel that he will be up to more therapy at this time. O. Patient transferred from supine to seated at the edge of bed then performed transfer to the commode then to the shower chair. and was left with OT for further therapy. A. Patient struggles with pain and immobility, he requires max assist with sit to stand transfers. Patient would continue to benefit from skilled therapy to increase strength, mobility and safety at this time. P. Continue POC.
[2018-05-20] MEDS: ACETAMINOPHEN 325 MG TABLET PO PRN (13:21)
--- NOTE | 2018-05-20 15:16 | OT.PROG ---
Progress Note Progress Note: S: pt stated he was a little tired but doing fine. O: tx consisted of UE red RTB exercises in all planes of motion x20 each. A: pt was falling asleep during exercises and needed VCs to finish exercises. P: continue POC
--- NOTE | 2018-05-20 16:48 | PT.PROG ---
Progress Note Progress Note: S. Patient stated that he would like to get in bed. He reported he has a lot of pain in his left hip. O. Patient performed seated exercises in the form of; long arc quads, marches, heel toe raises, resisted knee flexion, pillow squeezes, clam shells all x 10 bilaterally with red thera band, sit to stands x 3. Patient ambulated approximately 3 feet to the bed where he performed bed mobility and was left with alarm and call light. A. Patient tolerated exercise well, he required mod assist x 2 for transfers and ambulation, and max assist x 2 for bed mobility, he would continue to benefit from skilled therapy to increase strength, mobility and safety at this time. P. Continue POC.
--- NOTE | 2018-05-20 18:38 | ORTHO.PROG ---
Last Taken Vital Signs: Vital Signs - Last Taken Temperature 97.8 F 05/20/18 16:01 Pulse Rate 78 05/20/18 16:01 Respiratory Rate 20 05/20/18 16:01 Blood Pressure 133/58 05/20/18 16:01 Pulse Ox 93 05/20/18 16:01 Subjective: Patient states he is not having any pain, but with repeating the question and rolling his leg he does complain of some anterior pelvis pain Objective: Examination shows that the patient probably has in the lying position with had been up about 50 he has some external rotation maybe 20 on the left compared to the right but not excessive. He has good pulses brisk refill sensory and motor exams intact he complains of rolling the leg. This produces pain. Pelvis region. With palpation he denies any pain along the trochanteric region of the femur and the tibia ankle or toes. Patient with good pulses brisk refill. Plans of sacroiliac pain or discomfort. Squeeze of the pelvis Preoperative today and these revealed that practice of femoral nail in place with a lag screw calcifications over the top of the lag screw the femur is well- healed. Laboratory Results 05/19/18 Range/Units 04:10 Vitamin D 25-Hydroxy 19.1 L (30-100) NG/ML Assessment: Patient with left superior ramus and inferior ramus fracture minimally displaced Plan: Patient will continue with protected weightbearing as tolerated. Apparently he is going to be discharged tomorrow. Patient can follow up in orthopedic office in approximately 10-14 days. Continue with physical therapy and occupational therapy for the left anterior pelvic fractures. Deep vein thromboses prophylaxis per hospitalist.
[2018-05-20] MEDS: ATORVASTATIN 10 MG TABLET PO SCH (20:36)
[2018-05-20] MEDS: DONEPEZIL 5 MG TABLET PO SCH (20:36)
[2018-05-20] MEDS: GABAPENTIN 300 MG CAPSULE PO SCH (20:37)
[2018-05-20] MEDS: HYDROcodone-APAP 5 MG -325 MG TABLET PO PRN (20:37)
[2018-05-21 07:07] VITALS: RESP 18
[2018-05-21] MEDS: Insulin Lispro Flexpen 300 UNIT/3 ML INSULN.PEN SUBCUT SCH ×2 (07:41→11:22)
[2018-05-21] MEDS: CHOLECALCIFEROL 1000 IU TABLET PO SCH (08:32)
[2018-05-21] MEDS: Sertraline Tab 50 MG TAB PO SCH (08:32)
[2018-05-21] MEDS: ENOXAPARIN SODIUM 40 MG/0.4 ML SYRINGE SUBCUT SCH (08:33)
[2018-05-21] MEDS: DOCUSATE 100 MG CAPSULE PO SCH ×2 (08:33→08:37)
[2018-05-21] MEDS: METOPROLOL SUCCINATE 25 MG SR 24H TABLET PO SCH (08:33)
[2018-05-21] MEDS: ASPIRIN EC 81 MG TABLET PO SCH (08:33)
[2018-05-21] MEDS: TAMSULOSIN 0.4 MG CAPSULE PO SCH (08:33)
[2018-05-21] MEDS: PIOGLITAZONE HCL 15 MG PO SCH (08:35)
[2018-05-21] MEDS: METHYLPHENIDATE HCL 10 MG PO SCH (08:45)
[2018-05-21] MEDS ORDERED: Insulin Glargine SoloStar Inj 100 UNIT/ML INSULN.PEN SUBCUT SCH (09:00)
[2018-05-21] MEDS: POLYETHYLENE GLYCOL 3350 17 GM POWDER PO SCH (09:57)
--- NOTE | 2018-05-21 10:10 | PT.PROG ---
Progress Note Progress Note: S. Patient stated that he is having some pain in his left hip. O. Patient performed bed mobility from supine to seated then stood at the edge of bed x 2 minutes, then stood and ambulated 3 feet to the chair and was left in chair with alarm and call light. A. Patient continues to struggle with pain and weakness, he required max assist x 2 for bed mobility and mod assist x 2 for ambulation however required min assist x 2 for sit to stand transfers, patient requires frequent verbal cues for ambulation and safety, he would benefit from skilled therapy at senior living facility for strength, mobility and safety awareness. P. Continue POC.
--- NOTE | 2018-05-21 10:53 | DCSUMMARY ---
Hospitalization Summary Admit Date: 05/15/2018 Discharge Date: 05/21/18 Primary Diagnosis:: pubic rami fracture Secondary Diagnosis:: Dementia with behavioral disturbances Hospital Course: This is an 87 year old male who had a fall and had a pelvic rami fracture. His hip from sedation, but was quite weak and required physical therapy in a patient with therapy through the hospital stay. Unfortunately, he requires enough therapy that he'll need to have residential care. This is complicated by the fact that he has dementia. No behavioral disturbances were seen here. He complained mostly of neuropathic pain in his feet. I did read the clinic plan, and he recently was started on Neurontin with the plan to titrate upward so I will increase that dose to twice a day. Given cognitive dysfunction, we'll stop the very low-dose statin. It is well- known the cognitive impairments happen with statins. I will also stop Ritalin at this time. He was started to see whether or not the patient might benefit from therapy for depression and he is already on an antidepressant, Zoloft, and I'm worried that this could cause potential issues with hypertension and heart disease if it's continued on a long-term basis. Other medical issues remained stable during this hospital stay. Today, the patient has no complaints of chest pain, shortness breath, nausea or vomiting. He complains mostly of foot pain bilaterally and has neuropathic pain. He is ready to go [facility]. Assessment and Plan: 1. As per discharge assessments noted 2. Disposition: Patient is discharged to [facility] 3. Condition on discharge, stable and improved. 4. Diet: regular diet 5. Activities: Physical therapy and occupational therapy 3 times weekly has been ordered 6. Follow-Up: 1. Dr. Alcantar will resume primary care at [facility]. 2. 7. Medications at the Time of Discharge: Home Medications 3 Medication Instructions Recorded Confirmed Type aspirin 81 mg tablet,delayed PO 08/20/17 02/07/18 History release docusate sodium 100 mg tablet 100 mg PO QDAY 08/20/17 02/07/18 History insulin glargine (U-100) 100 60 unit SUBCUT QDAY #3 ml 01/16/18 02/07/18 Rx unit/mL (3 mL) subcutaneous pen metoprolol succinate ER 25 mg 25 mg PO QDAY #90 tab 01/16/18 02/07/18 Rx tablet,extended release 24 hr pioglitazone 15 mg tablet 15 mg PO QDAY #90 tab 01/16/18 02/07/18 Rx sertraline 50 mg tablet 75 mg PO QDAY #135 tab 01/16/18 02/07/18 Rx tamsulosin 0.4 mg capsule 0.4 mg PO QDAY #90 cap 01/16/18 02/07/18 Rx lancets See Dose Instructions .ROUTE 01/29/18 02/07/18 Rx .MEDSUPPLY #100 ea pen needle, diabetic 31 gauge x See Dose Instructions .ROUTE 01/29/18 02/07/18 Rx 11/07" .MEDSUPPLY #90 ea donepezil 5 mg tablet 5 mg PO QDAY #90 tab 03/12/18 03/12/18 Rx blood sugar diagnostic strips See Dose Instructions .ROUTE 04/02/18 Rx .MEDSUPPLY #50 ea Acetaminophen [Tylenol] 650 mg PO Q6H PRN tab 05/21/18 Rx Cholecalciferol [Vitamin D3] 1,000 iu PO DAILY tab 05/21/18 Rx Gabapentin 300 mg PO BID #90 cap 05/21/18 03/05/18 Rx HYDROcodone/APAP 5/325 Tab [Malone 1 tab PO Q4H PRN #60 tab 05/21/18 Rx 5/325 Tab] Polyeth Glycol 3350 Packet 17 gm PO DAILY powd.pack 05/21/18 Rx [Miralax Packet] Exam - Vitals Vital Signs: Vital Signs Temperature 97.6 F Temperature Source Temporal Artery Scan Pulse Rate [Apical] 80 Pulse Rate [Pulse Oximeter] 81 Pulse Rate [Telemetry] 76 Pulse Rate 64 Respiratory Rate 18 Blood Pressure [Right Arm] 136/68 Blood Pressure [Left Arm] 143/69 Blood Pressure 123/69 Pulse Ox 91 Oxygen Flow Rate 1 Oxygen Delivery Method Room Air Height 5 ft 9 in Weight 226 lb 3.2 oz - General General Appearance: No Acute Distress, Cooperative - Head Head Exam: Normal Inspection, Normocephalic, Atraumatic - Eye Eye Exam: POSITIVE: No Scleral Icterus - ENT ENT Exam: POSITIVE: Mucous Membranes Moist - Respiratory Respiratory Exam: POSITIVE: Clear to Auscultation - Bilaterally, Breathing Non Labored - Cardiovascular Cardiovascular Exam: POSITIVE: RRR, No Murmur, No Clicks, No Gallops, No Rubs, No JVD - GI/Abdominal GI/Abdominal Exam: POSITIVE: Normal Bowel Sounds, Non Tender, Non Distended, Soft - Extremities Extremities Exam: POSITIVE: No Edema Present - Neurological Neurological Exam: POSITIVE: Alert, No Facial Droop, Speech Intact / Clear, Moves All Extremities Equally Data Peritnent Studies: 05/15/18 05/15/18 05/15/18 11:42 15:42 21:23 WBC Hgb Hct Plt Count PT 11.3 INR 1.10 Sodium Potassium Chloride Carbon Dioxide Anion Gap BUN Creatinine BUN/Creatinine Ratio Glucose Calculated Osmolality Calcium Total Bilirubin AST ALT Alkaline Phosphatase Troponin I < 0.012 < 0.012 Total Protein Albumin Globulin Albumin/Globulin Ratio Vitamin D 25-Hydroxy 05/18/18 05/18/18 05/19/18 04:26 04:26 04:10 WBC 9.76 Hgb 12.4 L Hct 40.0 L Plt Count 247 PT INR Sodium 135 Potassium 5.1 Chloride 101 Carbon Dioxide 25 Anion Gap 9 BUN 36 H Creatinine 1.3 BUN/Creatinine Ratio 27.69 H Glucose 212 H Calculated Osmolality 293.0 H Calcium 9.0 Total Bilirubin 0.4 AST 29 ALT 28 Alkaline Phosphatase 60 Troponin I Total Protein 6.4 Albumin 3.2 L Globulin 3.2 Albumin/Globulin Ratio 1.00 L Vitamin D 25-Hydroxy 19.1 L Procedures: [address] [facility]. [facility] [place] [address] PH: DD: [phone] FAX: [phone] ~DIAGNOSTIC IMAGING REPORT~ Patient: Isac Jacobs Dob: 1930 Sex: M Age: 87 Exam Name: XR HIP COMPLETE MIN 2VW U/L Exam Date: 05/20/18 Report # : [id number] CPT Code: 70102 EMR/MR #: [id number] Ordering: Mary Elizabeth Admiting: TED VILLANUEVA MD. Primary: Carmelita Flores MD Attending: TED VILLANUEVA MD. Signed XR HIP COMPLETE MIN 2VW U/L 05/20/2018 8:14 AM History: [facility] [place] DI ^left hip pain Comparison: Left hip x-ray 05/15/2018. Left hip CT 05/15/2018. Findings/ Impression: Portable AP pelvis and crosstable lateral views of the left hip demonstrate postsurgical changes of the proximal left femur with an intramedullary iraj in the femoral head/neck and proximal femoral diaphysis. The distal portion of the iraj is not captured on this exam. Diffuse demineralization of the osseous structures limits evaluation of fine anatomic detail. Vertical lucency and cortical irregularity of the superior and inferior pubic rami are consistent with the known fractures demonstrated on CT. These have not significantly changed in alignment compared to the prior imaging. No other acute osseous abnormality is detected. The remainder of the exam is unchanged. Dictated By: [id number] DES KABA MD. Signed By: 05/20/18939 DES KABA MD. [address] [facility] [place] [address] PH: DD: [phone] FAX: [phone] ~DIAGNOSTIC IMAGING REPORT~ Patient: Isac Jacobs : 1930 Sex: M Age: 87 Exam Name: CT Lower Extremity WO Contrast Exam Date: 05/15/18 Report # : [id number] CPT Code: 06732 EMR/MR #: [id number] Ordering: VALENTINA CARRASCO Admiting: Primary: Carmelita Flores MD Attending: Signed CT Lower Extremity WO Contrast,05/15/2018 12:57 PM: Clinical History: Left hip pain Previous Exam: None at this facility. Findings: Multiple helically acquired CT images are obtained through the left hip without contrast, and demonstrate a slightly displaced inferior pubic ramus fracture. There is also a slightly displaced superior pubic ramus fracture which appears acute. There is no associated callus formation. The left hip and left femoral shaft demonstrate an old healed fracture and some fragmentation of the greater trochanter. The surrounding soft tissues are unremarkable. A few peripheral vascular calcifications are seen. Impression: Slightly displaced superior and inferior left pubic rami fractures. Dictated By: 05/15/18 1443 DIONI PALM MD. Signed By: 05/15/18 1448 DIONI PALM MD. Patient Problems - Patient Problem List (1) Fracture of left inferior pubic ramus Current Visit: Yes Status: Acute Code(s): S32.592A - Other specified fracture of left pubis, initial encounter for closed fracture Qualifiers: Encounter type: initial encounter Fracture type: closed Qualified Code(s) : S32.592A - Other specified fracture of left pubis, initial encounter for closed fracture Category: Medical (2) Vitamin D deficiency Current Visit: Yes Status: Acute Code(s): E55.9 - Vitamin D deficiency, unspecified Category: Medical (3) Depression Current Visit: Yes Status: Chronic Code(s): F32.9 - Major depressive disorder, single episode, unspecified Qualifiers: Depression Type: other depression Qualified Code(s): F32.89 - Other specified depressive episodes Category: Medical (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 Code(s): M79.2 - Neuralgia and neuritis, unspecified Category: Medical (5) Dementia Current Visit: Yes Status: Chronic Code(s): F03.90 - Unspecified dementia without behavioral disturbance Qualifiers: Category: Medical (6) Hyperlipidemia associated with type 2 diabetes mellitus Current Visit: Yes Status: Chronic Code(s): E11.69 - Type 2 diabetes mellitus with other specified complication; E78.5 - Hyperlipidemia, unspecified Category: Medical (7) BPH (benign prostatic hyperplasia) Current Visit: Yes Status: Chronic Code(s): N40.0 - Benign prostatic hyperplasia without lower urinary tract symptoms Qualifiers: Lower urinary tract symptom presence: symptoms present Lower urinary tract symptom detail: unspecified Qualified Code(s): N40.1 - Benign prostatic hyperplasia with lower urinary tract symptoms Category: Medical (8) Diabetes 1.5, managed as type 2 Current Visit: Yes Status: Chronic Code(s): E10.9 - Type 1 diabetes mellitus without complications Category: Medical
[2018-05-21 11:14] VITALS: BP 134/59; TEMP 97.7; O2SAT 93
--- NOTE | 2018-05-21 11:27 | OT.PROG ---
Progress Note Progress Note: S: pt stated that he was feeling good today and agreed to therapy. O: tx consisted of UE RTB exercises in all planes of motion x15 each, dressing at EOB. pt is independent in UE dressing when handed clothing items but currently needs MAX A for donning underwear and pants. A: pt continues to have difficulties with ADL tasks due to weakness and pain in his LEs. pt have difficulties with multiple step commands. P: continue POC
== END 2018-05-21 14:18 ==
LOC: MED/SURG 10:52 → ER 10:52 → MED/SURG 15:23
PROVIDERS: ADMIT Internal Medicine; ATTEND Internal Medicine